=== PATIENT | female | born 2000 | race Caucasian/White ===

== ENCOUNTER 2021-10-31 20:49 | Emergency (ER) | payer OTHER ==
[~2021-10-31] VITALS: Ht 162.6 cm; Wt 78.0 kg
[2021-10-31] MEDS ORDERED: ONDANSETRON ODT 4 MG TAB PO ONE (21:45)
[2021-10-31 21:52] LABS: Basophils # (auto) 0 10 ^3/uL (0-0.2); Basophils % (auto) 0.2 % (0.0-2.0); Eosinophils # (auto) 0 10 ^3/uL (0-0.8); Eosinophils % (auto) 0.1 % (0.0-7.0); Hematocrit 40.5 % (36.0-46.0); Hemoglobin 14.2 g/dL (12.2-16.2); Lymphocytes # (auto) 0.8 10 ^3/uL (0.4-5.4); Lymphocytes % (auto) 7.7 % (10.0-50.0); Mean Corpuscular Hemoglobin 30.7 pg (28.0-32.0); Mean Corpuscular Hgb Conc. 35.1 g/dL (32.0-36.0); Mean Corpuscular Volume 87.2 fL (80.0-100.0); Monocytes # (auto) 0.8 10 ^3/uL (0-1.3); Monocytes % (auto) 7.8 % (0.0-12.0); Neutrophils # (auto) 8.6 10 ^3/uL (1.6-8.6); Neutrophils % (auto) 84.2 % (37.0-80.0); Red Blood Cells 4.65 10^6/uL (4.0-5.20); Red Cell Distribution Width 13.9 % (11.8-14.3); White Blood Cell 10.2 10^3/uL (4.4-10.8)
[2021-10-31 22:47] LABS: Albumin 3.4 g/dL (3.4-5.0); BUN/Creatinine Ratio 10.7; Calcium 8.8 mg/dL (8.5-10.1); Potassium 3.4 mmol/L (3.5-5.1)
[2021-10-31 22:51] LABS: Bilirubin, Total 0.8 mg/dL (0.2-1.0); Total Protein 7.7 g/dL (6.4-8.2)
[2021-10-31 23:45] LABS: Urine Bacteria NONE SEEN /hpf (None Seen); Urine Blood Negative /uL (Negative); Urine Mucus FEW (None Seen); Urine Specific Gravity 1.032 (1.001-1.035); Urine WBC 3 /hpf (0 - 5)
[2021-11-01 00:01] VITALS: BP 129/76
== END 2021-11-01 00:21 | disposition home or self-care (01) ==
LOC: ER 20:54
DX: O21.8 Other vomiting complicating pregnancy (principal); Z3A.12 12 weeks gestation of pregnancy
CPT/HCPCS: 36415; 80053; 81001; 84702; 85025; 99283; Q0162

== ENCOUNTER 2021-11-03 12:46 | Emergency (ER) | payer OTHER ==
[~2021-11-03] VITALS: Ht 162.6 cm; Wt 75.3 kg
[2021-11-03 12:47] VITALS: BP 140/84
[2021-11-03] MEDS ORDERED: cefTRIAXone SOD 1,000 MG VL IM ONE (14:15)
[2021-11-03] MEDS ORDERED: AZIT500T66 PO (14:22)
[2021-11-03] MEDS ORDERED: NITR-87 PO (14:22)
[2021-11-03] MEDS ORDERED: LIDO2SOL23 MT (14:22)
[2021-11-03 15:26] LABS: Urine Bacteria FEW /hpf (None Seen); Urine Blood Negative /uL (Negative); Urine Mucus FEW (None Seen); Urine Specific Gravity 1.039 (1.001-1.035); Urine WBC 4 /hpf (0 - 5)
== END 2021-11-03 14:49 | disposition home or self-care (01) ==
LOC: ER 12:46
DX: O26.891 Other specified pregnancy related conditions, first trimester (principal); J03.90 Acute tonsillitis, unspecified; N30.00 Acute cystitis without hematuria; Z3A.13 13 weeks gestation of pregnancy
CPT/HCPCS: 81001; 96372; 99283; J0696